=== PATIENT | female | born 1955 | race Caucasian/White ===

== ENCOUNTER 2017-05-23 06:45 | Inpatient (IN) | payer MEDICARE, MEDICAID ==
[~2017-05-23] VITALS: Ht 165.1 cm; Wt 55.8 kg
[2017-05-23] MEDS ORDERED: FURO40 PO (06:58)
[2017-05-23] MEDS ORDERED: LOSA50TA37 PO (06:58)
[2017-05-23] MEDS ORDERED: ISOS60TA4 PO (06:58)
[2017-05-23] MEDS ORDERED: APIX5TAB PO (06:58)
[2017-05-23] MEDS ORDERED: ASPI-1182 PO (06:58)
[2017-05-23] MEDS ORDERED: DICL50TA9 PO ×2 (06:58)
[2017-05-23] MEDS ORDERED: [UNRECOGNIZED DRUG - CODE] TP (06:58)
[2017-05-23] MEDS ORDERED: CLOP75 PO (06:58)
[2017-05-23] MEDS ORDERED: CETI-290 PO (06:58)
[2017-05-23] MEDS ORDERED: CARV12 PO (06:58)
[2017-05-23] MEDS ORDERED: PANT40TA25 PO (06:58)
[2017-05-23 07:51] LABS: ABG A-A DIFF O2 377.6 mmHg (10-20.0); ABG BASE EXCESS -9.7 mmol/L (-2.0-3.0); ABG CARBOXYHEMOGLOBIN 1.6 % (0.0-1.5); ABG HCO3 17.8 mmol/L (22.0-26.0); ABG METHEMOGLOBIN 0.3 % (0.0-1.5); ABG OXYGEN CONTENT 19.1 mL/dL (15.0-23.0); ABG OXYGEN SATURATION 98.6 % (95.0-98.0); ABG OXYHEMOGLOBIN 96.7 % (94.0-100.0); ABG PCO2 31 mmHg (35-45); ABG PH 7.335 (7.35-7.450); ABG TOTAL HEMOGLOBIN 13.9 G/dL (12.0-18.0); PO2, ARTERIAL BG 124.2 mmHg (79.0-87.0); SOURCE, BLOOD GAS ARTERIAL; TEMPERATURE, FAHRENHEIT, BG 98.6 FAHREN (96.0-98.6)
[2017-05-23 07:52] LABS: CPAP, BG 0 cm H2O; O2 DEVICE,BLOOD GAS BIPAP (ROOM AIR); SITE, BLOOD GAS RT BRACHIAL
[2017-05-23 07:53] LABS: INSPIRATORY TIME, BG 1.2 SEC; PRESSURE SUPPORT, BG 10 cm H2O; SPONTANEOUS VT, BG 586 ml
[2017-05-23] MEDS ORDERED: FUROSEMIDE 40 MG/4 ML VIAL IVP ONE (08:00)
[2017-05-23 08:18] LABS: ANION GAP 14 mmol/L (8-16); CARBON DIOXIDE 18 mmol/L (22-29); CHLORIDE 108 mmol/L (98-107); CREATININE 1.22 mg/dL (0.60-1.30); GLOMERULAR FILTR. RATE CALC 45 mL/min (>60); GLUCOSE,RANDOM 171 mg/dL (70-110); POTASSIUM 3.9 mmol/L (3.5-5.1); SODIUM SERUM 140 mmol/L (136-145); UREA NITROGEN, BLOOD 31 mg/dL (7-18)
[2017-05-23 08:25] LABS: INFLUENZA TYPE A NEGATIVE FOR TYPE A (NEGATIVE); INFLUENZA TYPE B NEGATIVE FOR TYPE B (NEGATIVE)
[2017-05-23 08:25] LABS: ALANINE AMINOTRANSFERASE 141 U/L (12-78); ALBUMIN 3.2 g/dL (3.4-5.0); ALKALINE PHOSPHATASE 166 U/L (46-116); ASPARTATE AMINOTRANSFERASE 149 U/L (15-37); BILIRUBIN,TOTAL 0.8 mg/dL (0.1-1.0); CREATINE KINASE, TOTAL 30 U/L (26-192); TOTAL PROTEIN, SERUM 7.7 g/dL (6.4-8.2)
[2017-05-23 08:34] LABS: HEMATOCRIT 41.6 % (36-46); HEMOGLOBIN 13.4 g/dL (12.0-16.0); MEAN CORPUSCULAR HEMOGLOBIN 23.6 pg (26.0-34.0); MEAN CORPUSCULAR HGB CONC 32.2 G/dL (31.0-37.0); MEAN CORPUSCULAR VOLUME 73 fL (80-100); PLATELET COUNT (AUTO) 635 K/uL (150-450); RED BLOOD CELL COUNT(AUTO) 5.67 MIL/uL (4.00-5.20); RED CELL DISTRIBUTION WIDTH 21.7 % (11.5-14.5)
[2017-05-23 08:39] LABS: B-TYPE NATRIURETIC PEPTIDE 1160 pg/mL (0-100)
[2017-05-23] MEDS ORDERED: ACETAMINOPHEN 325 MG TABLET PO PRN (09:00)
[2017-05-23] MEDS ORDERED: ONDANSETRON HCL 4 MG/2 ML VIAL IVP PRN (09:00)
[2017-05-23 09:28] LABS: EOSINOPHILS % (MANUAL) 1 % (1-6); LYMPHOCYTES % (MANUAL) 6 % (22-44); MONOCYTES % (MANUAL) 3 % (2-9); SEGMENTED NEUTROPHILS % 90 % (40-70)
[2017-05-23 11:34] VITALS: BP 143/74
[2017-05-23 16:02] VITALS: BP 136/95
[2017-05-23 19:42] VITALS: BP 124/79
[2017-05-23 23:44] VITALS: BP 107/71
[2017-05-24 05:49] VITALS: BP 138/86
[2017-05-24 07:22] VITALS: BP 144/93
[2017-05-24 11:49] VITALS: BP 139/78
[2017-05-24] MEDS ORDERED: DICLOFENAC SODIUM 50 MG DR TABLET PO SCH ×2 (12:15→16:00)
[2017-05-24] MEDS ORDERED: ASPIRIN 81 MG EC TABLET PO SCH (12:15)
[2017-05-24 14:01] LABS: BASOPHILS # (AUTO) 0.09 K/uL (0.00-0.20); BASOPHILS % (AUTO) 1.1 % (0.0-2.0); EOSINOPHILS # (AUTO) 0.16 K/uL (0.00-0.70); HEMATOCRIT 42.2 % (36-46); HEMOGLOBIN 13.2 g/dL (12.0-16.0); LYMPHOCYTES # (AUTO) 1.2 K/uL (1.0-4.8); LYMPHOCYTES % (AUTO) 13.7 % (22.0-44.0); MEAN CORPUSCULAR HEMOGLOBIN 23.2 pg (26.0-34.0); MEAN CORPUSCULAR HGB CONC 31.3 G/dL (31.0-37.0); MEAN CORPUSCULAR VOLUME 74 fL (80-100); MONOCYTES # (AUTO) 0.2 K/uL (0.1-1.0); MONOCYTES % (AUTO) 2.6 % (2.0-9.0); NEUTROPHILS # (AUTO) 6.8 K/uL (1.8-7.7); NEUTROPHILS % (AUTO) 80.7 % (40.0-70.0); PLATELET COUNT (AUTO) 580 K/uL (150-450); RED BLOOD CELL COUNT(AUTO) 5.68 MIL/uL (4.00-5.20); RED CELL DISTRIBUTION WIDTH 21.9 % (11.5-14.5)
[2017-05-24 14:15] LABS: CALCIUM, TOTAL 10.7 mg/dL (8.8-10.5); CREATININE 1.25 mg/dL (0.60-1.30)
[2017-05-24] MEDS ORDERED: FUROSEMIDE 40 MG/4 ML VIAL IVP ONE (14:15)
[2017-05-24 14:27] LABS: ALBUMIN 3.3 g/dL (3.4-5.0)
[2017-05-24 14:42] LABS: PLATELET MORPHOLOGY COMMENT GIANT PLTS PRESENT
[2017-05-24] MEDS ORDERED: APIXABAN 5 MG TABLET PO SCH (21:00)
[2017-05-24] MEDS ORDERED: CARVEDILOL 12.5 MG TABLET PO SCH (21:00)
[2017-05-25] MEDS ORDERED: CETIRIZINE HCL 10 MG TABLET PO SCH (09:00)
[2017-05-25] MEDS ORDERED: ISOSORBIDE MONONITRATE 60 MG ER TABLET PO SCH (09:00)
[2017-05-25] MEDS ORDERED: PANTOPRAZOLE SODIUM 40 MG DR TABLET PO SCH (09:00)
[2017-05-25] MEDS ORDERED: LOSARTAN POTASSIUM 50 MG TABLET PO SCH (09:00)
[2017-05-25] MEDS ORDERED: FUROSEMIDE 40 MG TABLET PO SCH (09:00)
[2017-05-25] MEDS ORDERED: CLOPIDOGREL BISULFATE 75 MG TABLET PO SCH (09:00)
== END 2017-05-24 18:05 | disposition home or self-care (01) | DRG 291 ==
LOC: EMS 06:47 → 5N 09:39
PROVIDERS: ADMIT Hospitalist; ATTEND Hospitalist
PROC: 5A09357 Assistance with Respiratory Ventilation, Less than 24 Consecutive Hours, Continuous Positive Airway Pressure (ICD-10-PCS; principal; 2017-05-23)
DX: I11.0 Hypertensive heart disease with heart failure (principal); J96.91 Respiratory failure, unspecified with hypoxia; I50.9 Heart failure, unspecified; I48.91 Unspecified atrial fibrillation; I25.10 Atherosclerotic heart disease of native coronary artery without angina pectoris; Z79.82 Long term (current) use of aspirin; Z79.899 Other long term (current) drug therapy; Z98.61 Coronary angioplasty status
CPT/HCPCS: 82805; 87804; 93005; 93306; 96374; 99291; J1940

== ENCOUNTER → 2018-01-19 | Outpatient (CLI) | payer MEDICARE, MEDICAID, OTHER ==
[~2018-01-19] MED LIST: APIX5TAB PO; ASPI-1182 PO; CARV12 PO; CETI-290 PO; CLOP75 PO; DICL50TA9 PO; FURO40 PO; ISOS60TA4 PO; LOSA50TA37 PO; PANT40TA25 PO; [UNRECOGNIZED DRUG - CODE] TP
[2018-01-19 17:49] LABS: BASOPHILS % (AUTO) 1.8 % (0.0-2.0); EOSINOPHILS % (AUTO) 3.7 % (1.0-6.0); HEMATOCRIT 36.2 % (36-46); LYMPHOCYTES # (AUTO) 1.2 K/uL (1.0-4.8); LYMPHOCYTES % (AUTO) 14.8 % (22.0-44.0); MEAN CORPUSCULAR HEMOGLOBIN 22.8 pg (26.0-34.0); MEAN CORPUSCULAR HGB CONC 33.1 G/dL (31.0-37.0); MEAN CORPUSCULAR VOLUME 69 fL (80-100); MONOCYTES # (AUTO) 0.4 K/uL (0.1-1.0); MONOCYTES % (AUTO) 4.3 % (2.0-9.0); NEUTROPHILS # (AUTO) 6.2 K/uL (1.8-7.7); NEUTROPHILS % (AUTO) 75.4 % (40.0-70.0); PLATELET COUNT (AUTO) 544 K/uL (150-450); RED BLOOD CELL COUNT(AUTO) 5.25 MIL/uL (4.00-5.20); RED CELL DISTRIBUTION WIDTH 18.9 % (11.5-14.5)
[2018-01-19 18:24] LABS: ALBUMIN 3.2 g/dL (3.4-5.0); BILIRUBIN,TOTAL 0.8 mg/dL (0.1-1.0); CALCIUM, TOTAL 10.5 mg/dL (8.8-10.5); CHOL/HDL RATIO 2.2 (3.9-5.7); CREATININE 1.39 mg/dL (0.60-1.30); POTASSIUM 4.3 mmol/L (3.5-5.1); THYROID STIMULATING HORMONE 1.63 uIU/mL (0.36-3.74); TOTAL PROTEIN, SERUM 8.3 g/dL (6.4-8.2)
== END | disposition home or self-care (01) ==
LOC: LABPV 15:29
PROVIDERS: ATTEND Internal Medicine
DX: I10 Essential (primary) hypertension (principal); E78.5 Hyperlipidemia, unspecified
CPT/HCPCS: 84443

== ENCOUNTER → 2018-02-12 | Outpatient (CLI) | payer MEDICARE, MEDICAID, OTHER ==
[~2018-02-12] MED LIST changes: +LOSA50TA25 PO; -LOSA50TA37 PO
[2018-02-12 12:26] LABS: INR 1.8 (0.9-1.1)
== END | disposition home or self-care (01) ==
LOC: LABPV 11:41
PROVIDERS: ATTEND Internal Medicine Interventional Cardiology
DX: I25.10 Atherosclerotic heart disease of native coronary artery without angina pectoris (principal); I48.91 Unspecified atrial fibrillation

== ENCOUNTER → 2018-03-23 | Outpatient (CLI) | payer MEDICARE, MEDICAID, OTHER ==
[2018-03-23 15:10] LABS: INR 2.6 (0.9-1.1); PROTHROMBIN TIME 26.5 SEC (9.4-11.6)
== END | disposition home or self-care (01) ==
LOC: LABPV 14:25
PROVIDERS: ATTEND Internal Medicine Interventional Cardiology
DX: I48.2 Chronic atrial fibrillation (principal); I42.0 Dilated cardiomyopathy; I50.22 Chronic systolic (congestive) heart failure; I63.9 Cerebral infarction, unspecified; I51.3 Intracardiac thrombosis, not elsewhere classified; Z95.5 Presence of coronary angioplasty implant and graft

== ENCOUNTER → 2018-06-11 | Outpatient (CLI) | payer MEDICARE, MEDICAID, OTHER ==
[~2018-06-11] MED LIST changes: +CETI-170 PO; -CETI-290 PO; -LOSA50TA25 PO; +LOSA50TA64 PO
[2018-06-11 14:39] LABS: INR 3.8 (0.9-1.1); PROTHROMBIN TIME 37.4 SEC (9.4-11.6)
== END | disposition home or self-care (01) ==
LOC: LABPV 13:44
PROVIDERS: ATTEND Internal Medicine Interventional Cardiology
DX: I48.2 Chronic atrial fibrillation (principal); I42.0 Dilated cardiomyopathy; I50.22 Chronic systolic (congestive) heart failure; I51.3 Intracardiac thrombosis, not elsewhere classified; I63.9 Cerebral infarction, unspecified; Z95.5 Presence of coronary angioplasty implant and graft